=== PATIENT | female | born 2000 | race Two or more races ===

== ENCOUNTER 2021-08-29 21:08 | Emergency (ER) | payer OTHER ==
[2021-08-29 21:13] VITALS: TEMP 97.8; BMI 28.9
[2021-08-29 23:21] LABS: BASO % 0.6 % (0-2.0); EOS % 1.1 % (0-4.5); HEMATOCRIT 37.5 % (32.4-45.2); HEMOGLOBIN 12.6 GM/dL (10.7-15.3); MCH 26.2 pg (25.7-33.7); MCHC 33.5 g/dl (32.0-36.0); MEAN CELL VOLUME 78.4 fl (80-96); MEAN PLT VOLUME 10.1 fl (7.5-11.1); MONO % 8.2 % (3.8-10.2); NEUT % 50.1 % (42.8-82.8); PLATELET COUNT 190 10^3/uL (134-434); RBC 4.79 M/mm3 (3.60-5.2); RDW 14.2 % (11.6-15.6); WHITE BLOOD COUNT 6.5 K/mm3 (4.0-10.0)
[2021-08-29 23:24] LABS: CHLORIDE 105 mmol/L (98-107); SODIUM 138 mmol/L (136-145)
[2021-08-29 23:26] LABS: ALBUMIN 3.4 g/dl (3.4-5.0); ANION GAP 8 MMOL/L (8-16); CALCIUM 8.6 mg/dL (8.5-10.1); CO2 25 mmol/L (21-32)
[2021-08-29 23:27] LABS: GLUCOSE,RANDOM 99 mg/dL (74-106)
[2021-08-29 23:29] LABS: SGPT/ALT 16 U/L (13-61)
[2021-08-29 23:30] LABS: CREATININE 0.8 mg/dL (0.55-1.3); SGOT/AST 16 U/L (15-37)
[2021-08-29 23:31] LABS: BILIRUBIN,TOTAL 0.4 mg/dL (0.2-1); TOT PROT 7.6 g/dl (6.4-8.2)
[2021-08-29 23:32] LABS: ALK PHOS 52 U/L (45-117)
[2021-08-30 01:48] VITALS: BP 125/76; PULSE 73
== END 2021-08-30 01:50 | disposition home or self-care (01) ==
LOC: JER 21:08
DX: R07.9 Chest pain, unspecified (principal)
CPT/HCPCS: 36415; 71046-TC-FY; 80053; 82550; 84484; 85025; 85379; 93005; 93010; 99284-25